=== PATIENT | male | born 1995 | race African-American/Black ===

== ENCOUNTER 2021-12-02 09:15 | Emergency (ER) | payer OTHER ==
[~2021-12-02] VITALS: Ht 185.4 cm; Wt 87.0 kg
[2021-12-02] MEDS ORDERED: DIVALPROEX SODIUM 250MG ER TABLET PO ONE (10:45)
[2021-12-02 13:13] VITALS: BP 108/62
== END 2021-12-02 13:09 | disposition home or self-care (01) ==
LOC: ER 09:15
DX: Z13.9 Encounter for screening, unspecified (principal); R45.850 Homicidal ideations; F17.200 Nicotine dependence, unspecified, uncomplicated; F12.10 Cannabis abuse, uncomplicated
CPT/HCPCS: 99283; Z7610